=== PATIENT | male | born 1960 | race Caucasian/White ===

== ENCOUNTER 2020-10-05 11:10 | Emergency (ER) | payer BC ==
[2020-10-05 11:25] VITALS: TEMP 97.4
--- NOTE | 2020-10-05 11:58 | ED ---
Anxiety HPI - General Chief Complaint: Anxiety Stated Complaint: med reaction, not feeling well Time Seen by Provider: 10/05/20 11:29 Source: patient, RN notes reviewed Mode of arrival: ambulatory Limitations: no limitations - History of Present Illness Initial Comments: 59-year-old male presents emergency Department chief complaint of possible medication reaction. Patient was started on Zoloft approximately one month ago. Patient states he is doing much better taken his states that he had severe depression states he is crying all time states symptoms are improved. Patient states he is not suicidal or homicidal. Patient states that he's had some a few breakthrough moments where he gets very anxious, very on. Patient denies drug use or alcohol use. Patient states that his symptoms are gone. Patient is very nervous about losing time at work. - Related Data Home Medications: Previous Rx's Medication Instructions Recorded LORazepam [Ativan] 0.5 mg PO TID PRN 3 Days #9 tab 10/05/20 Allergies/Adverse Reactions: Allergies Allergy/AdvReac Type Severity Reaction Status Date / Time No Known Allergies Allergy Verified 10/05/20 11:25 Review of Systems ROS Statement: Those systems with pertinent positive or pertinent negative responses have been documented in the HPI. ROS Other: All systems not noted in ROS Statement are negative. Past Medical History Past Medical History: No Reported History History of Any Multi-Drug Resistant Organisms: None Reported Past Surgical History: No Surgical Hx Reported Past Psychological History: Anxiety, Depression Smoking Status: Never smoker Past Alcohol Use History: Daily Past Drug Use History: None Reported General Exam Limitations: no limitations General appearance: alert, in no apparent distress Head exam: Present: atraumatic, normocephalic, normal inspection ENT exam: Present: normal exam, mucous membranes moist Neck exam: Present: normal inspection. Absent: tenderness, meningismus, lymphadenopathy Respiratory exam: Present: normal lung sounds bilaterally. Absent: respiratory distress, wheezes, rales, rhonchi, stridor Cardiovascular Exam: Present: regular rate, normal rhythm, normal heart sounds. Absent: systolic murmur, diastolic murmur, rubs, gallop, clicks Neurological exam: Present: alert Psychiatric exam: Present: anxious Skin exam: Present: warm, dry, intact, normal color. Absent: rash Course Vital Signs 10/05/20 11:20 Temperature 97.4 F L Pulse Rate 95 Respiratory 20 Rate Blood Pressure 145/85 O2 Sat by Pulse 95 Oximetry Medical Decision Making - Medical Decision Making Patient had a panic attack today. Patient is stable at this time not suicidal homicidal. Patient will be provided Ativan for breakthrough symptoms. Disposition Clinical Impression: Acute anxiety, Panic attack Disposition: HOME SELF-CARE Instructions (If sedation given, give patient instructions): Generalized Anxiety Disorder (ED) Additional Instructions: Please return to the Emergency Department if symptoms worsen or any other concerns. Prescriptions: LORazepam [Ativan] 0.5 mg PO TID PRN 3 Days #9 tab PRN Reason: Anxiety Is patient prescribed a controlled substance at d/c from ED?: Yes When asked, does pt state using other controlled substances?: No If prescribed controlled substance>3 days was MAPS reviewed?: Prescribed <3 Days Referrals: Taiwo Vaughn MD [Primary Care Provider] - 1-2 days Time of Disposition: 11:58
[2020-10-05 12:26] VITALS: BP 139/73; PULSE 87; RESP 18
== END 2020-10-05 12:25 | disposition home or self-care (01) ==
LOC: EC 11:10
DX: F41.0 Panic disorder [episodic paroxysmal anxiety] (principal); F32.9 Major depressive disorder, single episode, unspecified
CPT/HCPCS: 99283

== ENCOUNTER → 2021-09-21 | Outpatient (CLI) | payer BC ==
--- NOTE | 2021-09-21 13:21 | XR ---
EXAMINATION TYPE: XR hand complete LT DATE OF EXAM: 09/21/2021 COMPARISON: NONE HISTORY: 60-year-old male [id number], left hand pain and swelling after dog bite yesterday. TECHNIQUE: 3 views FINDINGS: Generalized soft tissue swelling of the hand. There is a 3 mm metallic density within the ulnar sided soft tissues of the hand that could be external debris or superficially located retained foreign bod y. No soft tissue air is seen. No acute fracture, subluxation, or dislocation. Very mild osteoarthrit ic spurring at the base of the thumb. IMPRESSION: 1. Mild generalized soft tissue swelling. No acute osseous abnormality seen. 2. A 3 mm metallic density along the ulnar aspect of the hand, either external debris or a retained f oreign body in the superficial soft tissues. Clinically correlate.
== END | disposition home or self-care (01) ==
LOC: RADXRYALE 11:09
PROVIDERS: ATTEND Physician Assistant
DX: M79.642 Pain in left hand (principal)